=== PATIENT | male | born 1955 | race African-American/Black ===

== ENCOUNTER 2019-02-05 06:29 | Inpatient (IN) ==
--- NOTE | 2019-01-31 17:38 | EKG Report ---
Test Performed on : 01/31/2019 5:34:36 PM Test Reason : PAT Blood Pressure : / mmHG Vent. Rate : 057 BPM Atrial Rate : 057 BPM P-R Int : 198 ms QRS Dur : 150 ms QT Int : 436 ms P-R-T Axes : 056 -71 -14 degrees QTc Int : 424 ms Sinus bradycardia. with marked sinus arrhythmia. Left axis deviation Right bundle branch block Possible Lateral infarct (cited on or before 04-NOV-2014) Abnormal ECG When compared with ECG of 04-NOV-2014 07:06, Right bundle branch block has replaced Incomplete right bundle branch block Questionable change in initial forces of Anterolateral leads Confirmed by Erin BRITTON, Braden Alvarez ([id number]) on 02/01/2019 1:41:24 PM
[2019-01-31 17:57] LABS: URINE SOURCE CLEAN CATCH
[2019-01-31 18:01] LABS: BASO# 0.02 X1000 (0.0-0.2); BASO% 0.4 % (0.0-0.8); EOS# 0.18 X1000 (0.0-0.7); EOS% 3.8 % (0.0-10.0); HEMATOCRIT 44.6 % (42.0-52.0); IMM GRAN# 0.03 X1000 (0.0-0.04); IMM GRAN% 0.6 % (0.0-0.5); LYMPH# 1.57 X1000 (1.2-3.4); LYMPH% 33.1 % (20.5-51.1); MCHC 33.6 g/dL (33-37); MCV 83.2 FL (81-99); MONO# 0.69 X1000 (0.11-0.59); MONO% 14.6 % (1.7-9.3); MPV 10.4 FL (7.4-10.4); NEUT# 2.25 X1000 (1.4-6.5); NEUT% 47.5 % (42.2-75.2); PLT 242 X1000 (130-400); RBC 5.36 XMIL (4.7-6.1); RDW 14.3 % (11.5-14.5); WBC 4.74 X1000 (4.8-10.8)
[2019-01-31 18:03] LABS: BILIRUBIN URINE NEGATIVE (NEGATIVE); BLOOD URINE NEGATIVE (NEGATIVE); COLOR YELLOW; GLUCOSE URINE NEGATIVE (NEGATIVE); KETONE URINE NEGATIVE (NEGATIVE); LEUKOCYTES URINE NEGATIVE (NEGATIVE); NITRITE URINE NEGATIVE (NEGATIVE); PH URINE 5.5; PROTEIN URINE TRACE mg/dL (NEGATIVE); SP GRAVITY URINE 1.023; TURBIDITY URINE CLEAR (CLEAR); UROBILINOGEN URINE NORMAL (NORMAL)
[2019-01-31 18:06] LABS: UR EPITHELIAL CELLS <10 /HPF (<10); URINE BACTERIA NEGATIVE /HPF; URINE RBC <10 /HPF (<10); URINE WBC <10 /HPF (<10)
[2019-01-31 18:15] LABS: HEMOGLOBIN A1C 5.8 % (4.8-6.0)
[2019-01-31 18:48] LABS: INR 1.01; PROTIME 14.1 Seconds (11.0-16.0); PTT 29.6 Seconds (22.3-41.8)
[2019-01-31 18:53] LABS: CALCIUM 9.2 mg/dL (8.8-10.2); CREATININE 1.5 mg/dL (0.7-1.2); POTASSIUM 3.2 mmol/L (3.5-5.1)
[2019-02-05] MEDS ORDERED: REGLAN ONE (06:49)
[2019-02-05] MEDS ORDERED: PEPCID ONE (06:49)
[2019-02-05] MEDS ORDERED: COLACE ONE (06:49)
[2019-02-05] MEDS ORDERED: CELEBREX ONE (06:50)
[2019-02-05] MEDS ORDERED: LR 1,000 ML ONE (06:50)
[2019-02-05] MEDS ORDERED: LYRICA ONE (06:50)
[2019-02-05] MEDS ORDERED: KEFZOL 1 GM/D5W 1 GM/50 ML IVPB ONE (06:50)
[2019-02-05] MEDS ORDERED: DIPRIVAN 1% 500 MG/50 ML BOTTLE ONE (08:31)
[2019-02-05] MEDS ORDERED: FENTANYL ONE (08:39)
[2019-02-05] MEDS ORDERED: DURAMORPH ONE (08:47)
[2019-02-05] MEDS ORDERED: CYKLOKAPRON 1,000 MG/NS 1,000 MG/100 ML IVPB ONE (08:47)
[2019-02-05] MEDS ORDERED: MARCAINE 0.25% PF/EPI 1:200,000 ONE (08:47)
[2019-02-05] MEDS ORDERED: TORADOL ONE (08:47)
[2019-02-05] MEDS ORDERED: SODIUM CHLORIDE 0.9% ONE (08:47)
[2019-02-05] MEDS ORDERED: EXPAREL 1.3% ONE (08:48)
[2019-02-05] MEDS ORDERED: NEOSPORIN G.U. IRRIGANT ONE (08:48)
[2019-02-05] MEDS ORDERED: OFIRMEV 1000 MG/ISOTONIC SOLN 1,000 MG/100 ML BOTTLE ONE (10:42)
[2019-02-05] MEDS ORDERED: DECADRON ONE (10:42)
[2019-02-05] MEDS ORDERED: ZOFRAN ONE (10:42)
[2019-02-05] MEDS ORDERED: EPHEDRINE ONE (11:06)
[2019-02-05] MEDS ORDERED: ROBINUL ONE (11:32)
[2019-02-05 11:42] LABS: URINE SOURCE CATH
[2019-02-05 11:52] LABS: BILIRUBIN URINE NEGATIVE (NEGATIVE); BLOOD URINE NEGATIVE (NEGATIVE); COLOR YELLOW; GLUCOSE URINE NEGATIVE (NEGATIVE); KETONE URINE NEGATIVE (NEGATIVE); LEUKOCYTES URINE NEGATIVE (NEGATIVE); NITRITE URINE NEGATIVE (NEGATIVE); PH URINE 5.5; PROTEIN URINE NEGATIVE (NEGATIVE); SP GRAVITY URINE 1.015; TURBIDITY URINE CLEAR (CLEAR); UR EPITHELIAL CELLS <10 /HPF (<10); URINE BACTERIA NEGATIVE /HPF; URINE RBC <10 /HPF (<10); URINE WBC <10 /HPF (<10); UROBILINOGEN URINE NORMAL (NORMAL)
[2019-02-05] MEDS ORDERED: NS 1,000 ML ONE (12:37)
--- NOTE | 2019-02-05 12:48 | OPERATIVE NOTE ---
PROCEDURE DATE: 02/05/2019 PREOPERATIVE DIAGNOSIS: Right hip degenerative joint disease. POSTOPERATIVE DIAGNOSIS: Right hip degenerative joint disease. PROCEDURE PERFORMED: Right anterior total hip arthroplasty using a [facility] size 10 high offset stem with a neutral neck length, 36 mm head, a 58 mm hemispherical shell, a 36 mm inside diameter acetabular liner, and two 6.5 cancellous screws of 40 and 30 mm. ANESTHESIA: Spinal. SURGEON: Jared Lutz MD. ASSIST: Maya Boyd PA-C, who was present throughout the case. The front office assistant was critical for exposure, decision making, placement of the implants, and closure. Her assistance was necessary for successful completion of the case. BLOOD LOSS: Minimal. DRAINS: Hemovac x1. DESCRIPTION OF PROCEDURE: The patient was brought to the operative suite and placed in the supine position. After successful administration of spinal anesthesia, the patient was placed on the OSI bed in the usual position for the right hip. The right hip was then prepped and draped in the usual sterile fashion. A longitudinal incision was made beginning 2.5 cm distal and 3 cm lateral to the anterior-superior iliac spine, and extending distally and slightly laterally 8 cm, dissected sharply through the skin and subcutaneous tissue down to the tensor fascia. Tensor fascia was incised and dissected bluntly down to the deep tensor fascia. The deep tensor fascia was incised and circumflex vessels electrocauterized, exposing the anterior capsule. A T- capsulotomy was performed, exposing the femoral neck. Femoral neck cut was made with an oscillating saw. Femoral head was removed with a power corkscrew. The labrum was resected. The acetabulum was serially reamed to a 58 to accept a 58 cup. The 58 cup was then driven into place in the proper amount of inclination and anteversion under fluoroscopy. Then two 6.5 cancellous screws were placed, one superiorly and one posterosuperiorly, of 40 mm and 30 mm respectively. The acetabular liner was then locked onto the shell. Attention was then directed to the femur. It was externally rotated, extended, adducted, and elevated out of the wound with the hook on the OSI bed. The lateral neck was rongeured. The canal was serially broached to a size 10. A size 10 high offset stem with a neutral neck length was trialed and found to be excellent fit and fill of the stem, leg length, offset, and stability of the hip. A -4 neck length was trialed and found to be unstable with external rotation and extension of the hip. Therefore, we placed the neutral neck length. The trial was removed. The definitive stem was seated onto the femur and the ceramic head was seated onto the Lebron taper. Then the hip was reduced. It was again found to be excellent fit and fill of the stem, offset, position of the acetabulum, and leg length. The hip was copiously irrigated with normal saline containing irrigant and Vashe irrigation. A drain was placed deep to the tensor fascia and buried around the stem neck. The anterior capsule was repaired with 0 V-Loc. The tensor fascia was closed with 0 V-Loc. The skin edges were approximated with 2-0 Vicryl and Monocryl, and a sterile dressing, a Prineo was applied. The patient tolerated the procedure without complication. At the end of the procedure, all counts were correct. The patient was transferred to the recovery room in stable condition. cc: Jared Lutz MD
[2019-02-05] MEDS ORDERED: AMBIEN PO PRN (13:45)
[2019-02-05] MEDS ORDERED: MILK OF MAGNESIA PO PRN (13:45)
[2019-02-05] MEDS ORDERED: ZOFRAN IV PRN (13:45)
[2019-02-05] MEDS ORDERED: MORPHINE IV PRN ×3 (13:45)
[2019-02-05] MEDS ORDERED: OXY IR PO PRN (13:45)
[2019-02-05] MEDS ORDERED: ZOFRAN ODT PO PRN (14:00)
[2019-02-05] MEDS: OXY IR PO PRN ×3 (14:34→22:16)
[2019-02-05] MEDS: NS 1,000 ML IV SCH (14:35)
[2019-02-05] MEDS ORDERED: CYKLOKAPRON 1,000 MG/NS 1,000 MG/100 ML IVPB IV ONE (16:30)
[2019-02-05] MEDS ORDERED: CYKLOKAPRON 1,000 MG in NS 100 ML IV ONE (16:30)
[2019-02-05] MEDS: TYLENOL PO SCH (17:24)
[2019-02-05] MEDS: ULTRAM PO SCH (17:24)
[2019-02-05] MEDS: KEFZOL 1 GM/D5W 1 GM/50 ML IVPB IV SCH (17:25)
[2019-02-05] MEDS: CELEBREX PO SCH (21:02)
[2019-02-05] MEDS: LYRICA PO SCH (21:02)
[2019-02-05] MEDS: COLACE PO SCH (21:02)
[2019-02-05] MEDS: HYDROCHLOROTHIAZIDE PO SCH (21:02)
[2019-02-05] MEDS: PERIDEX MT SCH (21:03)
[2019-02-06] MEDS: HYDROCHLOROTHIAZIDE PO SCH ×2 (01:15→08:12)
[2019-02-06] MEDS: NS 1,000 ML IV SCH (03:04)
[2019-02-06] MEDS: KEFZOL 1 GM/D5W 1 GM/50 ML IVPB IV SCH (03:04)
[2019-02-06] MEDS: TYLENOL PO SCH ×3 (04:13→06:44)
[2019-02-06] MEDS: ULTRAM PO SCH ×3 (04:14→06:43)
[2019-02-06 06:34] LABS: HEMATOCRIT 35.6 % (42.0-52.0); HEMOGLOBIN 11.9 g/dL (14.0-18.0)
[2019-02-06 06:50] LABS: AGAP 9; BUN 19 mg/dL (8-22); CALCIUM 8.8 mg/dL (8.8-10.2); CHLORIDE 104 mmol/L (98-107); COSMO 281; CREATININE 1.2 mg/dL (0.7-1.2); ESTIMATED GFR > 60; GLUCOSE 129 mg/dL (70-104); POTASSIUM 3.7 mmol/L (3.5-5.1); SODIUM 139 mmol/L (136-145); TCO2 26 mmol/L (25-35)
[2019-02-06 07:51] VITALS: BP 131/67
[2019-02-06] MEDS: PERIDEX MT SCH (08:12)
[2019-02-06] MEDS: COLACE PO SCH (08:13)
[2019-02-06] MEDS: LYRICA PO SCH (08:13)
[2019-02-06] MEDS: CELEBREX PO SCH (08:14)
[2019-02-06] MEDS ORDERED: BYSTOLIC PO SCH (09:00)
[2019-02-06] MEDS ORDERED: PEPCID PO SCH (09:00)
[2019-02-06] MEDS ORDERED: DECADRON IV ONE (09:00)
[2019-02-06] MEDS ORDERED: BENICAR PO SCH (09:00)
--- NOTE | 2019-02-06 09:18 | DISCHARGE SUMMARY ---
ADMISSION DATE: 02/05/2019 DISCHARGE DATE: 02/06/2019 DISCHARGE DIAGNOSIS: Right hip degenerative joint disease status post right anterior total hip arthroplasty. DISCHARGE MEDICATIONS: See discharge medication list. DISPOSITION: The patient discharged to home with home health and physical therapy. Instructed to return for any signs or symptoms of infection or deep venous thrombosis. Instructed to return to see Dr. Lutz next Tuesday. HOSPITAL COURSE: On the day of admission, patient underwent a right anterior total hip arthroplasty. His postoperative course was unremarkable. At discharge, he is afebrile, tolerating a regular diet, ambulating well with Physical Therapy. His wound is clean, dry, intact without any sign of infection. He is discharged to home in stable condition. He was instructed to follow up as described above. cc: Jared Lutz MD
[2019-02-06] MEDS: OXY IR PO PRN (11:54)
[2019-02-06] MEDS ORDERED: XARELTO PO SCH (12:00)
== END 2019-02-06 11:56 | disposition home or self-care (01) | DRG 470 ==
LOC: SURHOLD 06:29 → 4N 13:04
PROVIDERS: ADMIT Orthopaedic Surgery; ATTEND Orthopaedic Surgery
CPT/HCPCS: 76000; 80048; 81001; 82040; 83036; 85014; 85018; 85025; 85610; 85730; 86850; 86900; 86901; 88304; 88311; 93005; 93010; 94761; 94799; 97110; 97162; 97165; 97530; 97535; A9270; C9290; J0131; J0690; J1100; J1885; J2274; J2275; J2405; J3010; J7030; J7120; Q9974; S0020